=== PATIENT | male | born 1985 | race African-American/Black ===

== ENCOUNTER → 2019-11-09 | Outpatient (CLI) | payer OTHER ==
--- NOTE | 2019-11-11 16:27 | SLEEPCENT ---
DATE OF PROCEDURE: 11/09/2019 ORDERED BY: CATRACHITO Wei Nocturnal polysomnography was performed for evaluation of sleep physiology in this patient with history of nonrestorative sleep and excessive daytime somnolence. 8 hours of data were reviewed. There were 440.5 minutes of sleep identified. Sleep latency was normal at 9 minutes. Rapid eye movement (REM) latency was normal at 43.5 minutes. Sleep architecture showed mild fragmentation early in the study. There were 5 REM cycles noted. Overall sleep efficiency was 92.9%. The patient's electrocardiogram showed a sinus rhythm with an average heart rate of 50 beats per minute. Rate ranged 46-82. Electroencephalogram (EEG) showed fairly normal waveforms for awake and sleep. There were only 10 respiratory events identified of 10 seconds in duration or greater for an apnea-hypopnea index within normal limits of 1.4. Snoring was noted during the study however, and respiratory related arousals occurred 5.4 times per hour. There were no significant oxygen desaturations and limb activity resulted in arousals only 2.6 times per hour. IMPRESSION: Normal nocturnal polysomnography with snoring.
== END ==
LOC: M SLEEP 19:11
PROVIDERS: ATTEND Nurse Practitioner Family
DX: R06.83 Snoring (principal)

== ENCOUNTER 2021-02-24 08:38 | Emergency (ER) | payer OTHER ==
[~2021-02-24] VITALS: Ht 175.3 cm; Wt 87.9 kg
[2021-02-24 09:26] LABS: BASO % 0.6 % (0.0-1.0); EOS # 0.2 10^3/uL (0.0-0.5); EOS % 2.7 % (0.0-3.0); HEMATOCRIT 45.9 % (42.0-52.0); HEMOGLOBIN 15.6 g/dl (13.5-17.5); LYMPH # 2.8 10^3/uL (1.5-5.0); LYMPH % 39.1 % (24.0-44.0); MEAN CORPUSCULAR HEMOGLOBIN 30.2 pg (27.0-33.0); MEAN CORPUSCULAR VOLUME 88.8 fl (80.0-96.0); MONO # 0.6 10^3/uL (0.0-0.8); MONO % 8.1 % (2.0-8.0); NEUTROPHILS # 3.5 10^3/uL (1.5-8.5); NEUTROPHILS % 49.4 % (36.0-66.0); PLATELET COUNT, AUTOMATED 225 10^3/uL (150-450); RED BLOOD COUNT 5.17 10^6/uL (4.30-6.10); WHITE BLOOD COUNT 7.1 10^3/uL (4.0-10.0)
--- NOTE | 2021-02-24 09:31 | REP ---
INDICATION: CHEST PAIN COMPARISON: None. TECHNIQUE: Portable AP view of the chest FINDINGS: The mediastinum and cardiac silhouette are within normal limits for portable technique. The lung segura are clear without acute consolidation, effusion, or pneumothorax. Skeletal structures are intact. IMPRESSION: No acute cardiopulmonary process appreciated. <Electronically signed by Yonathan Mar > 02/24/21 [id number]
[2021-02-24 09:37] LABS: INR 1.01; PARTIAL THROMBOPLASTIN TIME 26.6 SECONDS (24.2-38.5); PROTHROMBIN TIME 13.6 SECONDS (12.5-14.3)
[2021-02-24 09:56] LABS: D-DIMER QUANT < 270 ng/ml (<500)
[2021-02-24 09:58] LABS: ALT/SGPT 45 U/L (12-78); BILIRUBIN,DIRECT 0.2 MG/DL (0.0-0.2); BILIRUBIN,TOTAL 0.8 MG/DL (0.2-1.0); BLOOD UREA NITROGEN 16 MG/DL (7-18); CALCIUM LEVEL 9.2 MG/DL (8.5-10.1); CARBON DIOXIDE LEVEL 28 MEQ/L (21-32); CHLORIDE LEVEL 106 MEQ/L (98-107); CK-MB VALUE MASS 1.3 NG/ML (<3.6); CPK CREATINE PHOSPHOKINASE 299 U/L (39-308); CREATININE FOR GFR 1.17 MG/DL (0.70-1.30); GLOMERULAR FILTRATION RATE > 60.0 (>60); GLUCOSE, FASTING 105 MG/DL (70-100); LIPASE 113 U/L (73-393); MB/CK RELATIVE INDEX 0.43 (< OR =4); POTASSIUM SERUM 3.8 MEQ/L (3.5-5.1); SODIUM LEVEL 139 MEQ/L (136-145); TOTAL PROTEIN 7.5 GM/DL (6.4-8.2); TROPONIN I < 0.02 NG/ML (< 0.10)
[2021-02-24] MEDS ORDERED: ISOVUE-370 76% 100ML VIAL As Ordered ONE (10:25)
--- NOTE | 2021-02-24 10:49 | REP ---
INDICATION: exertional dyspnea COMPARISON: None. TECHNIQUE: Axial contrast enhanced images from the thoracic inlet to the upper abdomen using pulmonary embolus technique with multiplanar re-formations. 75 ml Isovue 370 intravenous contrast material administered without complication. This CT examination was performed using the following dose reduction techniques: Automated exposure control, adjustment of mA and/or kv according to the patient's size, and use of iterative reconstruction technique. FINDINGS: Satisfactory enhancement of the pulmonary vasculature is achieved and no filling defects are identified to suggest pulmonary embolus. Further evaluation of the mediastinum demonstrates normal thoracic aorta, heart and pericardium. The bilateral lung segura are well aerated and clear without consolidation pleural effusion or pneumothorax. Tracheobronchial tree is patent. No nodule or mass lesion is identified. No adenopathy noted. Surrounding musculoskeletal structures intact IMPRESSION: No evidence for pulmonary embolus. No acute mediastinal or pleural parenchymal process. <Electronically signed by Yonathan Mar > 02/24/21 [id number]
[2021-02-24] MEDS ORDERED: KETO10TAB PO (10:59)
[2021-02-24 11:15] VITALS: BP 142/84
--- NOTE | 2021-02-25 06:44 | ECGEPIP ---
[facility] - ED Test Date: 2021-02-24 Pat Name: CATALINA OCONNELL Department: Room: - Gender: Male Nurse Tech: ER : 1985 Requested By: Selvin Hernandez Order Number: [id number] Reading MD: Selvin Gonsales Measurements Intervals [place] Rate: 53 P: 46 [place]: 192 QRS: 49 QRSD: 94 T: -10 QT: 428 QTc: 401 Interpretive Statements Sinus bradycardia Minimal voltage criteria for LVH, may be normal variant ( Sokolow-Shook ) POOR R WAVE PROGRESSION ST elevation, consider early repolarization NSTTW ABNORMALITY(S) NO PRIORS FOR COMPARISON Electronically Signed on 02-25-2021 6:44:08 EDT by Selvin Gonsales
== END 2021-02-24 11:43 | disposition home or self-care (01) ==
LOC: M ED 08:38
DX: R07.89 Other chest pain (principal)
CPT/HCPCS: 36415; 71045; 71275; 80048; 80076; 82550; 82553; 83690; 84484; 85025; 85379; 85610; 85730; 93005; 93041; 94760; 99285; Q9967